=== PATIENT | female | born 1965 | race Asian ===

== ENCOUNTER 2019-01-28 08:12 | Emergency (ER) | payer MEDICAID, OTHER ==
[2019-01-28 11:40] LABS: Influenza A Molecular NEGATIVE (Negative); Influenza B Molecular NEGATIVE (Negative)
--- NOTE | 2019-01-28 11:46 | UC ---
Respiratory Complaint HPI - HPI Summary HPI Summary: 3 days of sore throat, pain with swallowing, cough, congestion, headache, nausea and body aches. No fever. - History of Current Complaint Chief Complaint: UCGeneralIllness Stated Complaint: SORE THROAT Time Seen by Provider: 01/28/19 10:51 Hx Obtained From: Patient Hx Last Menstrual Period: unk Onset/Duration: Gradual Onset, Lasting Days, Still Present Timing: Constant Severity Initially: Moderate Severity Currently: Moderate Pain Intensity: 5 Pain Scale Used: 0-10 Numeric Character: Cough: Nonproductive Aggravating Factors: Nothing Alleviating Factors: Nothing Associated Signs And Symptoms: Positive: URI, Nasal Congestion. Negative: Dyspnea, Fever, Chills - Allergies/Home Medications Allergies/Adverse Reactions: Allergies Allergy/AdvReac Type Severity Reaction Status Date / Time No Known Allergies Allergy Verified 01/28/19 08:35 Home Medications: Home Medications NK [No Home Medications Reported] 01/28/19 [History Confirmed 01/28/19] PMH/Surg Hx/FS Hx/Imm Hx Previously Healthy: Yes - Surgical History Surgical History: None Surgery Procedure, Year, and Place: denies - Family History Known Family History: Positive: Non-Contributory - Social History Alcohol Use: None Substance Use Type: None Smoking Status (MU): Never Smoked Tobacco Review of Systems All Other Systems Reviewed And Are Negative: Yes Constitutional: Positive: Fatigue ENT: Positive: Sore Throat, Nasal Discharge Respiratory: Positive: Cough Cardiovascular: Positive: Negative Gastrointestinal: Positive: Nausea. Negative: Vomiting Genitourinary: Positive: Negative Musculoskeletal: Positive: Myalgia Neurological: Positive: Headache Physical Exam Triage Information Reviewed: Yes Appearance: Well-Appearing, No Pain Distress, Well-Nourished Vital Signs: Initial Vital Signs Temp 98 F 01/28/19 08:32 Pulse 79 01/28/19 08:32 Resp 17 01/28/19 08:32 BP 104/68 01/28/19 08:32 Pulse Ox 100 01/28/19 08:32 Laboratory Tests 01/28/19 01/28/19 11:26 11:28 Influenza A (Rapid) Negative Influenza B (Rapid) Negative Group A Strep Rapid Negative Vital Signs Reviewed: Yes Eyes: Positive: Conjunctiva Clear ENT: Positive: Hearing grossly normal, Pharynx normal, TMs normal Neck: Positive: Supple, Nontender, No Lymphadenopathy Respiratory Exam: Normal Cardiovascular Exam: Normal Abdomen Description: Positive: Soft Musculoskeletal: Positive: No Edema Neurological: Positive: Alert Psychological: Positive: Age Appropriate Behavior Skin: Negative: Rashes Respiratory Course/Dx - Differential Dx/Diagnosis Provider Diagnosis: Acute URI Discharge - Sign-Out/Discharge Documenting (check all that apply): Patient Departure All imaging exams completed and their final reports reviewed: No Studies - Discharge Plan Condition: Stable Disposition: HOME Patient Education Materials: Upper Respiratory Infection (ED) Referrals: [facility] [Outside] - If Needed Additional Instructions: STREP NEGATIVE. FLU NEGATIVE. YOUR SYMPTOMS ARE LIKELY VIRALLY MEDIATED AND SHOULD RESOLVE ON THEIR OWN WITH TIME. NO INDICATION FOR ANTIBIOTICS AT PRESENT. REST, HYDRATE, OTC MEDS NEEDED. SEEK FOLLOW-UP IF YOU ARE NOT IMPROVING OVER THE NEXT 1-2 WEEKS. IF YOU ARE NOT FEELING ANY BETTER IN 1 WEEK CALL ME HERE. NEXT SATURDAY FROM 2: 30PM TO 9PM OR NEXT SATURDAY FROM 7AM TO 1PM. CALL THE NUMBER BELOW FOR ASSISTANCE IN ESTABLISHING WITH A PCP An additional resource available to assist in finding the appropriate physician for your health care needs is the [facility] ([facility]). You may contact them by calling [phone]. - Billing Disposition and Condition Condition: STABLE Disposition: Home
== END 2019-01-28 12:01 | disposition home or self-care (01) ==
LOC: UCEAST 08:12
DX: J06.9 Acute upper respiratory infection, unspecified (principal); R11.0 Nausea; R52 Pain, unspecified
CPT/HCPCS: 87651; 99202; G0463

== ENCOUNTER 2019-07-11 01:45 | Emergency (ER) | payer MEDICAID ==
[2019-07-11] MEDS ORDERED: Ibuprofen TAB* 600 MG PO ONE (02:00)
--- NOTE | 2019-07-11 02:12 | ED ---
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 She mentions that she has had on and off back pain for a few years. She notes that she does not speak [place] well. Pain severity is rated an 8/10. No aggravating or alleviating factors noted. She also denies any bowel/bladder symptoms, numbness, or fever. - History of Current Complaint Stated Complaint: BACK PAIN PER EMS Hx Obtained From: Patient Hx Last Menstrual Period: unk Onset/Duration: Gradual Onset, Lasting Hours, Still Present Onset/Duration: Started Hours Ago, Still Present Timing: Constant, Lasting Hours Back Pain Location: Is Diffuse Severity Initially: Severe Severity Currently: Severe Pain Intensity: 8 Pain Scale Used: 0-10 Numeric Aggravating Symptom(s): Nothing Alleviating Symptom(s): Nothing Associated Signs And Symptoms: Positive: Other - pos - back pain, neg - bowel/ bladder symptoms. Negative: Fever, Numbness - Allergies/Home Medications Allergies/Adverse Reactions: Allergies Allergy/AdvReac Type Severity Reaction Status Date / Time No Known Allergies Allergy Verified 01/28/19 08:35 PMH/Surg Hx/FS Hx/Imm Hx Sensory History: Denies: Hx Legally Blind, Hx Deafness Opthamlomology History: Denies: Hx Legally Blind EENT History: Denies: Hx Deafness - Surgical History Surgical History: None Surgery Procedure, Year, and Place: denies Infectious Disease History: No Infectious Disease History: Denies: Traveled Outside the [place] in Last 30 Days - Family History Known Family History: Negative: Renal Disease - Social History Alcohol Use: None Substance Use Type: Reports: None Smoking Status (MU): Never Smoked Tobacco Review of Systems - ROS Summary Review of Systems Summary: Appearance: Well-appearing, Well-nourished, lying in bed comfortably Skin: Warm, dry, no obvious rash Eyes: sclera anicteric, no conjunctival pallor ENT: mucous membranes moist, pharynx appears normal Neck: Supple, nontender Respiratory: Clear to auscultation, no signs of respiratory distress Cardiovascular: Normal S1, S2. No murmurs. Normal distal pulses in tibial and radial bilaterally. Abdomen: Soft, nontender, normal active bowel sounds present Musculoskeletal: Normal, Strength/ROM Intact Neurological: A&Ox3, awake and alert, mentation is normal, speech is fluent and appropriate Psychiatric: affect is normal, does not appear anxious or depressed Negative: Fever Gastrointestinal: Negative - bowel/bladder symptoms Positive: Other - pos - back pain Negative: Numbness All Other Systems Reviewed And Are Negative: Yes Physical Exam Triage Information Reviewed: Yes Vital Signs On Initial Exam: Initial Vitals Temp Pulse Resp BP Pulse Ox 98.1 F 96 18 132/81 99 07/11/19 01:46 07/11/19 01:46 07/11/19 01:46 07/11/19 01:46 07/11/19 01:46 Vital Signs Reviewed: Yes Diagnostics - Vital Signs Vital Signs Temp Pulse Resp BP Pulse Ox 07/11/19 01:46 98.1 F 96 18 132/81 99 - Laboratory Lab Statement: Any lab studies that have been ordered have been reviewed, and results considered in the medical decision making process. 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 She also denies any bowel/bladder symptoms, numbness, or fever. No test or imaging results to report. In the ED course pt was given 1 tab Percocet PO and 600 mg Motrin PO. Final Dx is low back strain. Pt will be discharged home with PCP follow up. Pt is agreeable with this plan. - Diagnoses Provider Diagnoses: Low back strain Discharge ED - Sign-Out/Discharge Documenting (check all that apply): Patient Departure - discharge Patient Received Moderate/Deep Sedation with Procedure: No - Discharge Plan Condition: Stable Disposition: HOME Prescriptions: Naproxen TAB* [Naprosyn 375 mg TAB*] 375 mg PO BID #20 tab Patient Education Materials: Low Back Strain (ED) Referrals: Mayito Juan MD [Medical Doctor] - As Soon As Possible - Billing Disposition and Condition Condition: STABLE Disposition: Home - Attestation Statements Document Initiated by Scribe: Yes Documenting Scribe: Nolberto Quintanilla Provider For Whom Scribe is Documenting (Include Credential): Maxwell Ferreira MD Scribe Attestation: Nolberto Coffey, scribed for Maxwell Ferreira MD on 07/11/19 at 2028. Scribe Documentation Reviewed: Yes Provider Attestation: The documentation as recorded by the scribe, Nolberto Quintanilla accurately reflects the service I personally performed and the decisions made by me, Maxewll Ferreira MD Status of Scribglorai Document: Viewed
[2019-07-11] MEDS ORDERED: oxyCODONE/Acetamin 5/325 MG* TAB PO PRN (02:21)
[2019-07-11 06:12] VITALS: BP 108/70
== END 2019-07-11 06:10 | disposition home or self-care (01) ==
LOC: ED 01:45
DX: S39.012A Strain of muscle, fascia and tendon of lower back, initial encounter (principal); M54.9 Dorsalgia, unspecified; X50.9XXA Other and unspecified overexertion or strenuous movements or postures, initial encounter; Y92.9 Unspecified place or not applicable
CPT/HCPCS: 99283; A9270-GY